=== PATIENT | male | born 1980 | race Caucasian/White ===

== ENCOUNTER 2018-11-30 20:55 | Emergency (ER) | payer SELFPAY ==
[2018-11-30] MEDS ORDERED: EPINEPHRINE INJ/PF 1 MG/1 ML AMPULE IM ONE (21:26)
[2018-11-30] MEDS ORDERED: METHYLPREDNISOLONE INJ 125 MG/2 ML SDV IV ONE (21:27)
[2018-11-30] MEDS ORDERED: FAMOTIDINE INJ/PF 20 MG/2 ML SDV IV ONE (21:27)
[2018-11-30] MEDS ORDERED: NORMAL SALINE 1000 ML 1,000 ML IV ONE (21:27)
--- NOTE | 2018-11-30 21:30 | ER Document Report ---
ED Allergic Reaction - General Chief Complaint: Hives Stated Complaint: POSSIBLE BUG BITES Time Seen by Provider: 11/30/18 21:23 Notes: Patient is a 38-year-old male that comes to the emergency department for chief complaint of allergic reaction. He was bitten on the feet by multiple ants, shortly after this he started breaking out into a rash over his whole body, his face appeared to swell slightly, and he started vomiting. He denies difficulty breathing or swallowing. He denies history of the same. at bedside states he was given approximately 50 mg of Benadryl using children's Benadryl. She states it actually helped and his rash is starting to fade. Patient reports still feeling nauseated. Past medical history of type 2 diabetes, medicated, denies medical history otherwise. TRAVEL OUTSIDE OF THE [place] IN LAST 30 DAYS: No - Related Data Allergies/Adverse Reactions: ant bites Adverse Reaction (Severe, Uncoded 11/30/18 21:53) Anaphylaxis Past Medical History - General Information source: Patient - Social History Smoking Status: Never Smoker Frequency of alcohol use: None Drug Abuse: None Lives with: Family Family History: Reviewed & Not Pertinent - Medical History Medical History: Negative Surgical Hx: Negative - Immunizations Immunizations up to date: Yes Hx Diphtheria, Pertussis, Tetanus Vaccination: Yes Review of Systems - Review of Systems Constitutional: No symptoms reported EENT: No symptoms reported Cardiovascular: No symptoms reported Respiratory: No symptoms reported Gastrointestinal: See HPI Genitourinary: No symptoms reported Male Genitourinary: No symptoms reported Musculoskeletal: No symptoms reported Skin: See HPI Hematologic/Lymphatic: No symptoms reported Neurological/Psychological: No symptoms reported Physical Exam - Vital signs Vitals: Resp Pulse Ox 13 94 11/30/18 21:23 11/30/18 21:23 - Notes Notes: GENERAL: Alert, restless, slightly uncomfortable HEAD: Normocephalic, atraumatic. EYES: Pupils equal, round, and reactive to light. Extraocular movements intact. ENT: Oral mucosa moist, tongue midline. Oropharynx unremarkable. Airway patent. Nares patent, no nasal septal hematoma, TM's intact. NECK: Full range of motion. Supple. Trachea midline. LUNGS: Clear to auscultation bilaterally, no wheezes, rales, or rhonchi. No respiratory distress. HEART: Regular rate and rhythm. No murmur ABDOMEN: Soft, non-tender. Non-distended. Bowel sounds present in all 4 quadrants. GENITOURINARY: Deferred EXTREMITIES: Moves all 4 extremities spontaneously. No edema, normal radial and dorsalis pedis pulses bilaterally. No cyanosis. BACK: no cervical, thoracic, lumbar midline tenderness. No saddle anesthesia, normal distal neurovascular exam. Moves all extremities in full range of motion. NEUROLOGICAL: Alert and oriented x3. Normal speech. Cranial nerves II through XII grossly intact. PSYCH: Patient appears slightly uncomfortable SKIN: Patient is flushed. Scattered erythema in patches mainly over the arms and legs, slightly over the abdomen as well Course - Re-evaluation Re-evalutation: Patient still has widespread rash mainly on the extremities, still complaining of nausea, I do not see facial swelling, oral pharyngeal exam is unremarkable without airway compromise, lungs are clear. Because patient is to systems involved (skin and gastrointestinal) this is consistent with anaphylaxis. Given epinephrine, solu-medrol, famotidine, IV fluids, placing a monitor, he will be closely observed. 11/30/18 22:01 Patient has started improving and then continued to improve. Now symptoms have almost completely resolved. He will be under continued monitoring at this time. Patient reevaluated again, symptoms completely resolved. He will be monitored until he has been here long enough to be sure symptoms do not return as epinephrine is wearing off. Patient reevaluated again. He is requesting to leave. He has been here approximately 3 hours after the medication dose of epinephrine. His symptoms have not return, no new symptoms. He will be discharged with medications, instructions, return precautions discussed in detail with patient and significant other. He states understanding and agreement. - Vital Signs Vital signs: Temp Pulse Resp BP Pulse Ox 19 118/70 97 12/01/18 00:01 12/01/18 00:01 12/01/18 00:01 Discharge - Discharge Clinical Impression: Allergy to ant bite Allergic reaction Qualifiers: Encounter type: initial encounter Qualified Code(s): T78.40XA - Allergy, unspecified, initial encounter Condition: Stable Disposition: HOME, SELF-CARE Additional Instructions: Your examination was consistent with anaphylaxis, a severe allergic reaction. Take Zyrtec and Pepcid for 1 week, take prednisone as prescribed, follow-up with your provider for additional management. In the event of a severe allergic reaction (including facial, tongue, throat swelling, difficulty breathing, etc.) take your EpiPen and return immediately to the emergency department. Return for any other concerning symptoms. Prescriptions: Cetirizine HCl [All Day Allergy] 10 mg PO DAILY #30 capsule Epinephrine [Epipen 2-Gerald] 0.3 mg IM ASDIR PRN #1 packet PRN Reason: Famotidine [Pepcid 20 mg Tablet] 20 mg PO BID #14 tablet Prednisone [Deltasone 10 mg Tablet] 10 mg PO ASDIR PRN #21 tablet PRN Reason:
[2018-12-01 00:46] VITALS: BP 118/70
== END 2018-12-01 00:47 | disposition home or self-care (01) ==
LOC: ER 20:55
DX: T63.421A Toxic effect of venom of ants, accidental (unintentional), initial encounter (principal); R21 Rash and other nonspecific skin eruption; R11.2 Nausea with vomiting, unspecified; E11.9 Type 2 diabetes mellitus without complications; Z79.899 Other long term (current) drug therapy; Z87.892 Personal history of anaphylaxis
CPT/HCPCS: 99281; 96372; 96361; 96374; 96375; J0171; J2930; J7030; S0028